=== PATIENT | male | born 1965 ===

== ENCOUNTER 2024-12-25 20:48 | Emergency (ER) | payer MEDICARE ==
[~2024-12-25] VITALS: Ht 177.8 cm; Wt 140.6 kg
[~2024-12-25 20:48] MED LIST: DULO60 PO; HYDACE5 PO; INS70/30PN SC; INSULANI SC; LISI20 PO; METF500 PO; SINGULAIR
[2024-12-25 21:43] LABS: BASOPHILS ABSOLUTE AUTO 0.03 K/mm3 (0.00-0.23); BASOPHILS PERCENT AUTO 0 % (0-2); EOSINOPHILS ABSOLUTE AUTO 0.03 K/mm3 (0.00-0.68); EOSINOPHILS PERCENT AUTO 0 % (0-6); Hematocrit 46.2 % (37.0-53.0); Hemoglobin 15.1 g/dL (13.5-17.5); IMMATURE GRAN ABSOLUTE AUTO 0.03 K/mm3 (0.00-0.10); IMMATURE GRAN PERCENT AUTO 0 % (0-1); LYMPHOCYTES ABSOLUTE AUTO 0.37 K/mm3 (0.84-5.20); LYMPHOCYTES PERCENT AUTO 5 % (21-46); MONOCYTES ABSOLUTE AUTO 0.33 K/mm3 (0.16-1.47); MONOCYTES PERCENT AUTO 5 % (4-13); Mean Corpuscular HGB 27.8 pg (26.0-34.0); Mean Corpuscular HGB Conc 32.7 g/dL (31.5-36.5); Mean Corpuscular Volume 85 fL (80-100); Mean Platelet Volume 10.7 fL (9.1-12.4); NEUTROPHILS PERCENT AUTO 89 % (41-73); Platelet Count 198 K/mm3 (150-400); RDW Coefficient Variation 13.2 % (11.7-14.2); RDW Standard Deviation 40.7 fL (35.1-46.3); Red Blood Cell Count 5.44 M/mm3 (4.30-5.90); White Blood Cell Count 6.99 K/mm3 (4.00-11.30)
[2024-12-25 22:06] LABS: Albumin, Blood 3.7 g/dL (3.4-5.0); Bun/Creatinine Ratio 17.8 (12.0-20.0); Calcium, Blood 9.5 mg/dL (8.5-10.1); Creatinine, Blood 0.68 mg/dL (0.60-1.20); Globulin, Blood 3.6 g/dL (2.2-4.0); Potassium, Blood 3.9 mmol/L (3.5-5.5); Total Protein, Blood 7.3 g/dL (6.4-8.2)
[2024-12-26 00:51] VITALS: BP 109/67
[2024-12-26] MEDS ORDERED: ALMACONE SUSPE355 ML PO (01:24)
[2024-12-26] MEDS ORDERED: Mag Hydrox/AL Hydrox/Simeth 30 ML UDC PO ONE (01:25)
== END 2024-12-26 01:36 | disposition home or self-care (01) ==
LOC: ER 20:48
PROVIDERS: Student in an Organized Health Care Education/Training Program
DX: K21.9 Gastro-esophageal reflux disease without esophagitis (principal); R74.01 Elevation of levels of liver transaminase levels; E11.9 Type 2 diabetes mellitus without complications; G47.30 Sleep apnea, unspecified; I10 Essential (primary) hypertension; E78.5 Hyperlipidemia, unspecified
CPT/HCPCS: 71046; 80053; 82550; 83690; 84484; 85025; 93005; 93010; 99284-25; A9270

== ENCOUNTER 2025-05-16 13:24 | Day surgery (SDC) | payer MEDICARE, OTHER ==
[~2025-05-16] VITALS: Ht 177.8 cm; Wt 138.4 kg
[~2025-05-16 13:24] MED LIST changes: +ALMACONE SUSPE355 ML PO; +Glycopyrrolate 0.2 MG/ML 1MLVIAL ONE; +Ondansetron HCl 2 MG / ML 2ML Vial ONE
[2025-05-16] MEDS ORDERED: ACAR50 (13:36)
[2025-05-16] MEDS ORDERED: NEURONTIN300 MG (13:37)
[2025-05-16] MEDS ORDERED: FARXIGA10 MG (13:37)
[2025-05-16 14:53] VITALS: BP 124/87
== END 2025-05-16 13:54 | disposition home or self-care (01) ==
LOC: ORSCSDS 13:24
PROVIDERS: Internal Medicine Gastroenterology
PROC: 0DJ08ZZ Inspection of Upper Intestinal Tract, Via Natural or Artificial Opening Endoscopic (ICD-10-PCS; principal; 2025-05-16 15:00)
DX: K21.9 Gastro-esophageal reflux disease without esophagitis (principal); R11.2 Nausea with vomiting, unspecified; Z98.84 Bariatric surgery status; I10 Essential (primary) hypertension; G47.33 Obstructive sleep apnea (adult) (pediatric); E11.9 Type 2 diabetes mellitus without complications; E66.01 Morbid (severe) obesity due to excess calories; Z68.41 Body mass index [BMI] 40.0-44.9, adult; Z79.4 Long term (current) use of insulin; Z79.84 Long term (current) use of oral hypoglycemic drugs; Z79.899 Other long term (current) drug therapy
CPT/HCPCS: 82947; J2003; J2405; J2704; J7120

== ENCOUNTER 2025-08-21 18:24 | Inpatient (IN) | payer MEDICARE, OTHER ==
[~2025-08-21] VITALS: Ht 177.8 cm; Wt 130.9 kg
[~2025-08-21 18:24] MED LIST changes: -ACAR50 PO; -FARXIGA10 MG PO; -GABA300 PO; -MONT10T PO; -NOVOLOG FL100 UNIT/2 SC; -NOVOLOG FL100 UNIT/3 SC; -OZEMPIC2 MG/0.75 SC; -POTA10T PO; -PRAV20 PO; -PROP10 PO; -TOUJEO SOL300 UNIT/2 SC
[2025-08-21 19:47] LABS: Prothrombin Time Results 12.6 Sec (9.7-11.5)
[2025-08-21] MEDS ORDERED: NS 1,000 ML IV SCH (23:35)
[2025-08-21] MEDS ORDERED: Piperacillin/Tazobactam Sod 3.375 GM in NS 100 ML IV ONE (23:35)
[2025-08-22] MEDS ORDERED: FLU VACC TS2025-26(6MOS UP)/PF 45 MCG/0.5 ML SYRINGE IM SCH (00:40)
[2025-08-22] MEDS ORDERED: FentaNYL Citrate 50 MCG/ML 2 ML Injection IV PRN ×2 (00:40→06:25)
[2025-08-22] MEDS ORDERED: Ondansetron HCl 2 MG / ML 2ML Vial IV PRN (00:40)
[2025-08-22] MEDS ORDERED: NS 1,000 ML IV SCH (00:40)
[2025-08-22] MEDS ORDERED: FARXIGA10 MG PO (01:16)
[2025-08-22] MEDS ORDERED: METF500 PO (01:17)
[2025-08-22] MEDS ORDERED: ACAR50 PO (01:17)
[2025-08-22 01:20] LABS: BASOPHILS ABSOLUTE AUTO 0.02 K/mm3 (0.00-0.23); BASOPHILS PERCENT AUTO 0 % (0-2); EOSINOPHILS ABSOLUTE AUTO 0.03 K/mm3 (0.00-0.68); EOSINOPHILS PERCENT AUTO 0 % (0-6); Hematocrit 44.1 % (37.0-53.0); Hemoglobin 14.1 g/dL (13.5-17.5); IMMATURE GRAN ABSOLUTE AUTO 0.11 K/mm3 (0.00-0.10); IMMATURE GRAN PERCENT AUTO 1 % (0-1); LYMPHOCYTES ABSOLUTE AUTO 1.15 K/mm3 (0.84-5.20); LYMPHOCYTES PERCENT AUTO 10 % (21-46); MONOCYTES ABSOLUTE AUTO 0.56 K/mm3 (0.16-1.47); MONOCYTES PERCENT AUTO 5 % (4-13); Mean Corpuscular HGB Conc 32.0 g/dL (31.5-36.5); Mean Corpuscular Volume 85 fL (80-100); NEUTROPHILS ABSOLUTE AUTO 10.24 K/mm3 (1.96-9.15); NEUTROPHILS PERCENT AUTO 85 % (41-73); NRBC ABSOLUTE 0.00 K/mm3 (0.00-0.02); NRBC Auto 0.0 /100 WBC (0.0-0.2); Platelet Count 240 K/mm3 (150-400); RDW Coefficient Variation 15.9 % (11.7-14.2); RDW Standard Deviation 49.4 fL (35.1-46.3)
[2025-08-22] MEDS ORDERED: NOVOLOG FL100 UNIT/3 SC (01:21)
[2025-08-22] MEDS ORDERED: PROP10 PO (01:22)
[2025-08-22] MEDS ORDERED: MONT10T PO (01:24)
[2025-08-22] MEDS ORDERED: GABA300 PO (01:25)
[2025-08-22] MEDS ORDERED: OZEMPIC2 MG/0.75 SC (01:27)
[2025-08-22] MEDS ORDERED: POTA10T PO (01:27)
[2025-08-22] MEDS ORDERED: PRAV20 PO (01:28)
[2025-08-22] MEDS ORDERED: Albumin (Human) 25gm/100ml 100 ML IV ONE (01:35)
[2025-08-22 01:48] LABS: Alanine Aminotransfer (ALT/SGP 209 U/L (12-78); Albumin, Blood 2.7 g/dL (3.4-5.0); Albumin/Globulin Ratio 0.6 (0.8-1.8); Anion Gap 9 mmol/L (3-11); Aspartate Aminotrans (AST/SGOT 55 U/L (12-37); Bilirubin, Total 3.9 mg/dL (0.1-1.0); Blood Urea Nitrogen 33 mg/dL (8-24); CHOL/HDL RATIO 19.0; CO2, Blood 28 mmol/L (21-32); Calcium, Blood 8.7 mg/dL (8.5-10.1); Chloride, Blood 99 mmol/L (98-108); Cholesterol 209 mg/dL (50-200); Creatinine, Blood 0.86 mg/dL (0.60-1.20); Globulin, Blood 4.9 g/dL (2.2-4.0); Glucose, Blood 312 mg/dL (70-99); HDL Cholesterol 11 mg/dL (>39); LDL/HDL RATIO 12.6; Low Density Lipoprotein Chol 138 mg/dL (0-110); Potassium, Blood 4.1 mmol/L (3.5-5.5); Sodium, Blood 132 mmol/L (136-145); Total Protein, Blood 7.6 g/dL (6.4-8.2); Triglycerides 299 mg/dL (30-160); Very Low Density Lipoprot Chol 59 mg/dL (6-32)
[2025-08-22 02:11] LABS: Source, Urine Clean Catch
[2025-08-22 02:14] LABS: Glucose Qualitative, Urine 4+ (Neg); Ketones, Urine 2+ (Neg); Leukocyte Esterase, Urine Neg (Neg); Protein, Urine 2+ (Neg); Specific Gravity, Urine 1.015 (1.003-1.022); Urobilinogen, Urine 1+ (Normal)
[2025-08-22 02:24] LABS: Bilirubin, Urine 1+ (Neg); Color, Urine Yellow (P-Yellow)
[2025-08-22 02:25] LABS: Red Blood Cells, Urine 0-2 /hpf (0-2); White Blood Cells, Urine 0-2 /hpf (0-5)
[2025-08-22] MEDS ORDERED: Insulin Glargine-Yfgn 100 Unit/mL 3 ML SYR SC SCH ×2 (04:00→21:00)
[2025-08-22] MEDS ORDERED: LISI20 PO (04:24)
[2025-08-22 04:25] VITALS: BP 127/85
[2025-08-22] MEDS ORDERED: TOUJEO SOL300 UNIT/2 SC (04:28)
[2025-08-22 04:29] LABS: Influenza A, PCR NEGATIVE (NEGATIVE); Influenza B, PCR NEGATIVE (NEGATIVE); Resp Syncytial Virus, PCR NEGATIVE (NEGATIVE); SARS-Cov-2 (COVID-19) PCR, MMC NEGATIVE (NEGATIVE)
[2025-08-22] MEDS ORDERED: NOVOLOG FL100 UNIT/2 SC (04:44)
[2025-08-22] MEDS ORDERED: Ampicillin Sod/Sulbactam Sod 3 GM in NS 100 ML IV SCH (06:00)
--- NOTE | 2025-08-22 06:07 | NUR ---
SHIFT SUMMARY- PT NEEDS ORDER FOR BLOOD SUGAR CHECKS ORDERED. WILL HAVE MRI IN THE MORNING. 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 I WILL PASS THIS ON TO THE DAY SHIFT NURSE. AMBULATION-INDEPENDENT ELIMINATION- INDEPENDENT MEDICATION- WW[facility]
[2025-08-22 07:04] VITALS: BP 150/90
[2025-08-22] MEDS ORDERED: Insulin Human Lispro 100 Units/ML 3ML Syringe SC SCH (07:30)
[2025-08-22] MEDS ORDERED: Potassium Chloride 10 Meq Tablet SA PO SCH (09:00)
[2025-08-22] MEDS ORDERED: LORazepam 2 MG/ML 1ML Injection IV ONE (10:20)
[2025-08-22] MEDS ORDERED: Insulin Glargine-Yfgn 100 Unit/mL 3 ML SYR SC ONE (10:30)
[2025-08-22 11:11] VITALS: BP 146/87
[2025-08-22 14:54] VITALS: BP 146/87
--- NOTE | 2025-08-22 15:08 | NUR ---
RN NOTE MR AMAYA IS ORIENTATED X4. NPO. HE DENIES NAUSEA. HE HAS UPPER ABDOMINAL DISCOMFORT THAT HE DESCRIBES LOW LEVEL WHEN HE IS NOT MOVING AROUND. HE HAS NOT WANTED ANALGESIA THIS SHIFT. ON TELEMETRY SR, 1ST DEGREE AVB, NO CALLS FROM [facility] OFFBEARER. BLOOD GLUCOSE 282 AND 261, INSULIN ORDERS ENTERED AFTER READ BACK TO DR MELÉNDEZ. FAMILY AT BEDSIDE. [facility] MRI WAS UNABLE TO ACCOMODATE HIM DUE TO SIZE RESTRICATIONS AND THE LEANDER OUT PATIENT MRI IS REPORTED MALFUNCTIONING, PT HAS BEEN ACCEPTED TO [facility] FOR [place] TRANSPORT. ATTEMPTED TO CALL REPORT BUT ACCEPTING FACILITY WAS VERY BUSY AND REQUESTED CALL-BACK IN 45 MINUTES. MR AMAYA HAS BEEN UPDATED ON TRANSFER AND IS IN AGREEMENT WITH TRANSFER.
[2025-08-22 15:28] VITALS: BP 150/94
--- NOTE | 2025-08-22 16:19 | NUR ---
3RD ATTEMPT TO CALL REPORT TO ACCEPTING NURSE AT ACCEPTING FACILITY. LEFT CALL-BACK NUMBER. TRANSPORT EXPECTED AT [id number]
--- NOTE | 2025-08-22 16:49 | NUR ---
TRANSFER REPORT TO [facility] ACCEPTING NURSE. MEDICAL TRANSPORT LEAVING NOW FOR TRANSFER.
[2025-08-24 11:42] LABS: HEPATITIS A ANTIBODY, IGM Negative (Negative); HEPATITIS C AB CIA INTERP Negative (Negative); HEPATITIS C ANTIBODY CIA INDEX 0.06 IV
== END 2025-08-22 16:50 | disposition short-term general hospital (02) | DRG 439 ==
LOC: ER 18:24 → MEDS 08-22 00:23
PROVIDERS: Student in an Organized Health Care Education/Training Program; ADMIT Internal Medicine
DX: K85.10 Biliary acute pancreatitis without necrosis or infection (principal); R17 Unspecified jaundice; I10 Essential (primary) hypertension; E78.5 Hyperlipidemia, unspecified; K21.9 Gastro-esophageal reflux disease without esophagitis; E11.65 Type 2 diabetes mellitus with hyperglycemia; G47.30 Sleep apnea, unspecified; Z79.899 Other long term (current) drug therapy; Z79.4 Long term (current) use of insulin; Z98.84 Bariatric surgery status
CPT/HCPCS: 36415; 76705; 80053; 80061; 80074; 81001; 82140; 82947; 83605; 83690; 85025; 85610; 85730; 87637; 99284-25; A9270; G0480; J0295; J1815; J2060; J2405; J2543; J3010; J7030; P9047

== ENCOUNTER → 2025-08-21 | Outpatient (CLI) | payer MEDICARE, OTHER ==
[~2025-08-21] MED LIST changes: +ACAR50; +ACAR50 PO; +FARXIGA10 MG; +FARXIGA10 MG PO; +GABA300 PO; -Glycopyrrolate 0.2 MG/ML 1MLVIAL ONE; +MONT10T PO; +NEURONTIN300 MG; +NOVOLOG FL100 UNIT/2 SC; +NOVOLOG FL100 UNIT/3 SC; +OZEMPIC2 MG/0.75 SC; -Ondansetron HCl 2 MG / ML 2ML Vial ONE; +POTA10T PO; +PRAV20 PO; +PROP10 PO; +TOUJEO SOL300 UNIT/2 SC
[2025-08-21 17:53] LABS: BASOPHILS ABSOLUTE AUTO 0.02 K/mm3 (0.00-0.23); BASOPHILS PERCENT AUTO 0 % (0-2); Hematocrit 44.5 % (37.0-53.0); Hemoglobin 14.7 g/dL (13.5-17.5); LYMPHOCYTES ABSOLUTE AUTO 1.13 K/mm3 (0.84-5.20); LYMPHOCYTES PERCENT AUTO 8 % (21-46); MONOCYTES ABSOLUTE AUTO 0.58 K/mm3 (0.16-1.47); MONOCYTES PERCENT AUTO 4 % (4-13); Mean Corpuscular HGB Conc 33.0 g/dL (31.5-36.5); Mean Corpuscular Volume 83 fL (80-100); NRBC ABSOLUTE 0.00 K/mm3 (0.00-0.02); NRBC Auto 0.0 /100 WBC (0.0-0.2); Platelet Count 234 K/mm3 (150-400); RDW Coefficient Variation 16.1 % (11.7-14.2); RDW Standard Deviation 48.1 fL (35.1-46.3)
[2025-08-21 17:54] LABS: EOSINOPHILS ABSOLUTE AUTO 0.01 K/mm3 (0.00-0.68); EOSINOPHILS PERCENT AUTO 0 % (0-6); IMMATURE GRAN ABSOLUTE AUTO 0.21 K/mm3 (0.00-0.10); IMMATURE GRAN PERCENT AUTO 2 % (0-1); NEUTROPHILS ABSOLUTE AUTO 12.53 K/mm3 (1.96-9.15); NEUTROPHILS PERCENT AUTO 87 % (41-73)
[2025-08-21 18:07] LABS: Alanine Aminotransfer (ALT/SGP 243 U/L (12-78); Albumin, Blood 2.8 g/dL (3.4-5.0); Albumin/Globulin Ratio 0.5 (0.8-1.8); Anion Gap 13 mmol/L (3-11); Aspartate Aminotrans (AST/SGOT 67 U/L (12-37); Bilirubin, Direct 5.8 mg/dL (0.0-0.3); Bilirubin, Total 6.8 mg/dL (0.1-1.0); Blood Urea Nitrogen 33 mg/dL (8-24); CO2, Blood 27 mmol/L (21-32); Calcium, Blood 9.2 mg/dL (8.5-10.1); Chloride, Blood 98 mmol/L (98-108); Creatinine, Blood 1.30 mg/dL (0.60-1.20); Globulin, Blood 5.1 g/dL (2.2-4.0); Glucose, Blood 328 mg/dL (70-99); Potassium, Blood 4.3 mmol/L (3.5-5.5); Sodium, Blood 134 mmol/L (136-145); Total Protein, Blood 7.9 g/dL (6.4-8.2)
== END | disposition home or self-care (01) ==
LOC: LAB SHORT 17:50 → LAB 17:50
DX: R10.9 Unspecified abdominal pain (principal)
CPT/HCPCS: 80053; 82248; 83690; 85025